=== PATIENT | male | born 1970 | race Caucasian/White ===

== ENCOUNTER 2024-12-05 08:24 | Emergency (ER) | payer OTHER, SELFPAY ==
--- NOTE | ~2024-12-05 | XR_ITS ---
XR finger 4th LT min 2V 12/05/2024 08:50 Indication: Fourth finger pain after fall Procedure: 3 views left fourth finger Comparison: No prior studies for comparison. Findings: No fracture, subluxation or dislocation. No significant soft tissue abnormality. No foreign bodies. Impression: 1: No acute bone or joint abnormality. Reviewed, dictated and finalized at location B. Impression: 1: No acute bone or joint abnormality.
--- NOTE | ~2024-12-05 | XR_ITS ---
HISTORY: fall, PTS STATES KNEE IS SWOLLEN COMPARISON: None TECHNIQUE: 4 views of the right knee were performed FINDINGS: No acute or subacute fracture, erosion, lytic or sclerotic lesion. Degenerative disease is noted with medial tibiofemoral joint space narrowing and osteophytic ridging. Large suprapatellar joint effusion is identified. The infrapatellar joint space is clear. Ossification of the insertion of the quadriceps tendon is identified. 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 No acute fracture. Reviewed, dictated and finalized at location A.
[2024-12-05 08:36] VITALS: BP 151/83; PULSE 68; RESP 16; TEMP 36.8; O2SAT 98
--- NOTE | 2024-12-05 09:32 | ED.GENADULT ---
HPI - General Adult General Chief complaint: Extremity Injury, Lower Stated complaint: R LEG AND L HAND WORK INJURY Time Seen by Provider: 12/05/24 08:31 History of Present Illness HPI narrative: Patient is a 54-year-old male who presents ER with pain to the right knee and left 4th digit. He is at work and had a trip and fall at approximately 1:30 a.m. the morning on 12/04/24. Did not think much of it but when he got home he went from sitting to standing while in a chair and had significant discomfort in his right knee. He has difficulty flexing in fully extending. There is swelling of knee and distal thigh. No numbness or tingling. Reports swelling has mildly decreased. His left 4th digit has also become bruised but he still maintains range of motion. When he fell he did not strike his head or lose consciousness. He is not on any blood thinners. Related Data Allergies Allergy/AdvReac Type Severity Reaction Status Date / Time No Known Allergies Allergy Verified 12/05/24 08:32 Review of Systems Constitutional: Constitutional: Reports no additional constitutional complaints Musculoskeletal: Musculoskeletal: Reports no additional musculoskeletal complaints Integumentary/Breasts: Skin/Breast: Reports system reviewed and no additional complaints, except as docu Neurologic: Reports system reviewed and no additional complaints, except as documented PMFSH Past Medical History Medical History (Updated 12/05/24 @ 10:06 by Aureliano Torres MD) Healthy adult male Surgical History Surgical History (Updated 12/05/24 @ 09:35 by Aureliano Torres MD) No pertinent past surgical history Exam Narrative: GENERAL: Well-appearing, well-nourished, and in no acute distress. HEAD: Normocephalic, atraumatic. ENT: Mucous membranes moist. CHEST: Clear to auscultation. No respiratory distress. HEART: Regular rate and rhythm. No murmur heard. Normal peripheral pulses. EXTREMITIES: Right knee with swelling of distal thigh just superior to the knee. Near full extension but can only flex 90?. Mild warmth but no erythema. No joint line tenderness or tenderness over the patella. Left 4th digit with some bruising but normal range of motion no point tenderness. SKIN: Warm, dry, no rash. NEURO: Alert and oriented x3. PSYCH: Normal mood and affect. Course Course Emergency Course: Patient felt to have a suprapatellar bursitis. Discussed treatment. Discussed imaging results. Finger sprain as well. Discharge. Vital Signs Vital signs: Vital Signs Temperature 98.2 F 12/05/24 08:36 Pulse Rate 68 12/05/24 08:36 Respiratory Rate 16 12/05/24 08:36 Blood Pressure 151/83 H 12/05/24 08:36 Pulse Oximetry 98 12/05/24 08:36 Temperature 98.2 F 12/05/24 08:36 Pulse Rate 68 12/05/24 08:36 Respiratory Rate 16 12/05/24 08:36 Blood Pressure 151/83 H 12/05/24 08:36 Pulse Oximetry 98 12/05/24 08:36 Medical Decision Making Vital Signs Vital Signs: Vital Signs Temperature 98.2 F 12/05/24 08:36 Pulse Rate 68 12/05/24 08:36 Respiratory Rate 16 12/05/24 08:36 Blood Pressure 151/83 H 12/05/24 08:36 Pulse Oximetry 98 12/05/24 08:36 Temperature 98.2 F 12/05/24 08:36 Pulse Rate 68 12/05/24 08:36 Respiratory Rate 16 12/05/24 08:36 Blood Pressure 151/83 H 12/05/24 08:36 Pulse Oximetry 98 12/05/24 08:36 Imaging Data Radiologist's impression: ITS Impressions Finger X-Ray 12/05/24 08:53 Impression: 1: No acute bone or joint abnormality. 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 No acute fracture. Discharge Plan Discharge Clinical Impression: Suprapatellar bursitis of right knee, Finger sprain Patient Disposition: Home Condition: Stable Instructions: Knee Bursitis (ED), Finger Sprain (ED), P.R.I.C.E. Treatment (ED) Additional Instructions: Return ER if you have new injury, you have chest pain with shortness of breath, you cannot keep down food water, or you have additional concerns. Patient Language: St Helen[place] Prescriptions: New naproxen 375 mg tablet 375 mg PO BID Qty: 14 0RF Follow-up/Referrals: PHYSICIAN,[employer] [Primary Care Provider] - Tavares Cortés MD [Physician] - 1 Week Stand Alone Forms: Work/School Release IP
--- OUTSIDE RECORDS SUMMARY | 2024-12-05 09:33 | XMS_ITS | Clinical Summary ---
Author Organization [facility] Address [address] [place] [id number] Care Team Providers Care Scabbler Name Role Phone None, Provider MD Primary Care Provider Unavaila ble Allergies No known active allergies Medications No known medications Social History Tobacco Use Types Packs/Day Years Used Date Smoking Tobacco: Never Assessed Sex and Gender Information Value Date Recorded Sex Assigned at Male 05/23/2024 7:43 AM FOUNDATION COORDINATOR Legal Sex Male 7:08 AM FOUNDATION COORDINATOR Gender Identity Male 05/23/2024 7:43 AM FOUNDATION COORDINATOR Sexual Orientation Not on file Last Filed Vital Signs Vital Sign Reading Time Taken Comments Blood Pressure 151/86 05/23/2024 8:28 AM FOUNDATION COORDINATOR Pulse 67 05/23/2024 8:28 AM FOUNDATION COORDINATOR Temperature 37.2 C (98.9 F) 05/23/2024 7:19 AM FOUNDATION COORDINATOR Respiratory Rate 16 05/23/2024 7:19 AM FOUNDATION COORDINATOR Oxygen Saturation 99% 05/23/2024 8:28 AM FOUNDATION COORDINATOR Inhaled Oxygen Concentration - - Weight 99.8 kg (220 lb) 05/23/2024 7:19 AM FOUNDATION COORDINATOR Height 180.3 cm (5' 11) 05/23/2024 7:19 AM FOUNDATION COORDINATOR Body Mass Index 30.68 05/23/2024 7:19 AM FOUNDATION COORDINATOR Plan of Treatment Health Maintenance Due Date Last Done Comments Colorectal Cancer Screening Colonoscopy (10 Years) 1968 Annual Physical 11/10/1971 Hepatitis C 1986 DTaP, Tdap and Td Vaccines ( 1 - Tdap) 11/10/1987 Hepatitis B Vaccines (1 of 3 - 19+ 3-dose series) 11/10/1987 Pneumococcal Vaccine: 50+ Ye ars (1 of 1 - PCV) 2018 Zoster Vaccines (1 of 2) 2018 COVID-19 Vaccine (2023-2 5 season) 2024 Meningococcal B Vaccine Aged Out No l onger eligible based on patient's age to complete this topic Meningococcal Vaccine Aged Out No oscar alvin eligible based on patient's age to complete this topic RSV Immunizations Under 20 Months Aged Out No longer eligible based on patient's age to complete this topic Insurance [employer] Care Teams Scabbler Relationship Specialty Start Date End Date None, Provider, PCP - General UNKNOWN PHYSICIAN SPECIALTY 05/23/24
== END 2024-12-05 10:52 | disposition home or self-care (01) ==
PROVIDERS: Emergency Provider Emergency Medicine
DX: M70.51 Other bursitis of knee, right knee (principal); S63.615A Unspecified sprain of left ring finger, initial encounter; M17.11 Unilateral primary osteoarthritis, right knee; W01.0XXA Fall on same level from slipping, tripping and stumbling without subsequent striking against object, initial encounter
CPT/HCPCS: 73140; 73564; 99284